=== PATIENT | female | born 1995 | race Caucasian/White ===

== ENCOUNTER → 2017-12-07 | Outpatient (CLI) | payer OTHER ==
[~2017-12-07] MED LIST: ARIP10; Bactrim 400-801 EACH PO; Bactrim Ds Tab1 EACH PO; CEPH500 PO; CIPR500 PO; CLIN300 PO; CODACEE120 PO; CRUTCH2 USE; HYDACE10B PO; HYDACE5 PO; INCARCERATION; METH10; METHYLPHENIDATE; N-ACETYL-L-CYS600 MG PO; Percocet 5-3251 EACH PO
== END | disposition home or self-care (01) ==
LOC: LAB EV 09:29 → LAB SHORT 09:29
DX: L02.91 Cutaneous abscess, unspecified (principal)
CPT/HCPCS: 87070; 87075; 87077; 87147; 87186; 87205

== ENCOUNTER 2019-02-27 19:47 | Emergency (ER) | payer OTHER ==
[~2019-02-27] VITALS: Ht 167.6 cm; Wt 72.6 kg
[2019-02-27] MEDS ORDERED: CYCL10 PO (21:22)
== END 2019-02-27 21:35 | disposition home or self-care (01) ==
LOC: ER 19:47
DX: L02.413 Cutaneous abscess of right upper limb (principal); M62.838 Other muscle spasm; F17.210 Nicotine dependence, cigarettes, uncomplicated; Z88.1 Allergy status to other antibiotic agents; V49.40XA Driver injured in collision with unspecified motor vehicles in traffic accident, initial encounter
CPT/HCPCS: 99283

== ENCOUNTER → 2019-02-28 | Outpatient (CLI) | payer OTHER ==
[~2019-02-28] MED LIST changes: +CYCL10 PO
== END | disposition home or self-care (01) ==
LOC: LAB EV 15:45 → LAB SHORT 15:45
DX: L03.011 Cellulitis of right finger (principal)
CPT/HCPCS: 87070; 87075; 87077; 87147; 87186; 87205

== ENCOUNTER 2019-03-01 14:56 | Emergency (ER) | payer OTHER ==
[~2019-03-01] VITALS: Ht 170.2 cm; Wt 72.6 kg
[2019-03-01 17:56] LABS: BASOPHILS ABSOLUTE AUTO 0.04 K/mm3 (0.00-0.23); BASOPHILS PERCENT AUTO 0 % (0-2); EOSINOPHILS ABSOLUTE AUTO 0.14 K/mm3 (0.00-0.68); EOSINOPHILS PERCENT AUTO 1 % (0-6); Hematocrit 40.5 % (33.0-51.0); Hemoglobin 13.3 g/dL (11.5-16.0); IMMATURE GRAN ABSOLUTE AUTO 0.04 K/mm3 (0.00-0.10); IMMATURE GRAN PERCENT AUTO 0 % (0-1); LYMPHOCYTES ABSOLUTE AUTO 2.29 K/mm3 (0.84-5.20); LYMPHOCYTES PERCENT AUTO 21 % (21-46); MONOCYTES ABSOLUTE AUTO 0.84 K/mm3 (0.16-1.47); MONOCYTES PERCENT AUTO 8 % (4-13); Mean Corpuscular HGB 28.6 pg (26.0-34.0); Mean Corpuscular HGB Conc 32.8 g/dL (31.5-36.5); Mean Corpuscular Volume 87 fL (80-100); Mean Platelet Volume 12.6 fL (9.1-12.4); NEUTROPHILS ABSOLUTE AUTO 7.46 K/mm3 (1.96-9.15); NEUTROPHILS PERCENT AUTO 69 % (41-73); Platelet Count 152 K/mm3 (150-400); RDW Coefficient Variation 12.8 % (11.7-14.2); RDW Standard Deviation 40.4 fL (35.1-46.3); Red Blood Cell Count 4.65 M/mm3 (3.80-5.20); White Blood Cell Count 10.81 K/mm3 (4.00-11.30)
[2019-03-01 18:17] LABS: Alanine Aminotransfer (ALT/SGP 25 U/L (12-78); Albumin, Blood 3.4 g/dL (3.4-5.0); Albumin/Globulin Ratio 0.8 (0.8-1.8); Alk Phos 71 U/L (50-136); Anion Gap 4 mmol/L (6-16); Aspartate Aminotrans (AST/SGOT 19 U/L (12-37); Bilirubin, Total 0.5 mg/dL (0.1-1.0); Blood Urea Nitrogen 12 mg/dL (8-24); Bun/Creatinine Ratio 19.4 (12.0-20.0); CO2, Blood 28 mmol/L (21-32); Calcium, Blood 9.1 mg/dL (8.5-10.1); Chloride, Blood 105 mmol/L (98-108); Creatinine, Blood 0.62 mg/dL (0.40-1.00); Globulin, Blood 4.1 g/dL (2.2-4.0); Glomerular Filtration Rate >60 (60-); Glucose, Blood 94 mg/dL (70-99); Sodium, Blood 137 mmol/L (136-145); Total Protein, Blood 7.5 g/dL (6.4-8.2)
[2019-03-01] MEDS ORDERED: Bactrim Ds Tab1 EACH PO (19:11)
== END 2019-03-01 19:24 | disposition home or self-care (01) ==
LOC: ER 14:56
PROVIDERS: Physician Assistant
DX: R42 Dizziness and giddiness (principal); R51 Headache; L02.413 Cutaneous abscess of right upper limb; B95.62 Methicillin resistant Staphylococcus aureus infection as the cause of diseases classified elsewhere; F17.210 Nicotine dependence, cigarettes, uncomplicated; Z88.1 Allergy status to other antibiotic agents; Z79.899 Other long term (current) drug therapy
CPT/HCPCS: 36415; 76882; 80053; 85025; 96372; 99283-25; J1885

== ENCOUNTER 2019-08-23 08:05 | Emergency (ER) | payer OTHER ==
[~2019-08-23] VITALS: Ht 170.2 cm; Wt 72.6 kg
[2019-08-23] MEDS ORDERED: Loperamide2 MG PO (09:04)
[2019-08-23] MEDS ORDERED: ONDA4ODT MM (09:04)
== END 2019-08-23 09:16 | disposition home or self-care (01) ==
LOC: ER 08:05
DX: A08.4 Viral intestinal infection, unspecified (principal); Z88.1 Allergy status to other antibiotic agents; Z79.899 Other long term (current) drug therapy; F17.210 Nicotine dependence, cigarettes, uncomplicated
CPT/HCPCS: 99282

== ENCOUNTER → 2020-01-08 | Outpatient (CLI) | payer OTHER ==
[~2020-01-08] MED LIST changes: +DOXYCYCLINE HY200 M1 PO; +Loperamide2 MG PO; +METH40 PO; +ONDA4ODT MM
== END | disposition home or self-care (01) ==
LOC: LAB EV 13:46 → LAB SHORT 13:46
DX: L02.414 Cutaneous abscess of left upper limb (principal)
CPT/HCPCS: 87070; 87205

== ENCOUNTER → 2020-05-04 | Outpatient (CLI) | payer OTHER | END | disposition home or self-care (01) | LOC: LAB EV 18:14 → LAB SHORT 18:14 | DX: L02.414 Cutaneous abscess of left upper limb (principal) | CPT/HCPCS: 87070; 87075; 87076; 87205 ==

== ENCOUNTER → 2022-08-10 | Outpatient (CLI) | payer OTHER ==
[2022-08-10 19:14] LABS: Albumin, Blood 3.2 g/dL (3.4-5.0); Albumin/Globulin Ratio 0.8 (0.8-1.8); Bilirubin, Total 0.1 mg/dL (0.1-1.0); Bun/Creatinine Ratio 20.3 (12.0-20.0); Calcium, Blood 8.8 mg/dL (8.5-10.1); Creatinine, Blood 0.64 mg/dL (0.40-1.00); Globulin, Blood 3.9 g/dL (2.2-4.0); Potassium, Blood 4.2 mmol/L (3.5-5.5); Total Protein, Blood 7.1 g/dL (6.4-8.2)
[2022-08-10 19:16] LABS: BASOPHILS ABSOLUTE AUTO 0.06 K/mm3 (0.00-0.23); BASOPHILS PERCENT AUTO 1 % (0-2); EOSINOPHILS PERCENT AUTO 3 % (0-6); Hematocrit 39.4 % (33.0-51.0); Hemoglobin 13.4 g/dL (11.5-16.0); IMMATURE GRAN ABSOLUTE AUTO 0.07 K/mm3 (0.00-0.10); IMMATURE GRAN PERCENT AUTO 1 % (0-1); LYMPHOCYTES ABSOLUTE AUTO 2.05 K/mm3 (0.84-5.20); LYMPHOCYTES PERCENT AUTO 26 % (21-46); MONOCYTES ABSOLUTE AUTO 0.55 K/mm3 (0.16-1.47); MONOCYTES PERCENT AUTO 7 % (4-13); Mean Corpuscular HGB 29.6 pg (26.0-34.0); Mean Corpuscular Volume 87 fL (80-100); NEUTROPHILS ABSOLUTE AUTO 4.85 K/mm3 (1.96-9.15); NEUTROPHILS PERCENT AUTO 62 % (41-73); RDW Coefficient Variation 13.5 % (11.7-14.2); RDW Standard Deviation 42.8 fL (35.1-46.3); Red Blood Cell Count 4.52 M/mm3 (3.80-5.20); White Blood Cell Count 7.78 K/mm3 (4.00-11.30)
[2022-08-10 20:00] LABS: Mean Platelet Volume 11.3 fL (9.1-12.4); Platelet Count 177 K/mm3 (150-400)
== END | disposition home or self-care (01) ==
LOC: LAB SHORT 18:59 → LAB 18:59
PROVIDERS: Physician Assistant Surgical
DX: R07.81 Pleurodynia (principal)
CPT/HCPCS: 80053; 83880; 85025

== ENCOUNTER 2022-11-10 01:14 | Emergency (ER) | payer OTHER ==
[~2022-11-10] VITALS: Ht 170.2 cm; Wt 81.7 kg
[2022-11-10 02:47] VITALS: BP 120/77
== END 2022-11-10 05:40 | disposition home or self-care (01) ==
LOC: ER 01:14
DX: J98.8 Other specified respiratory disorders (principal); B97.89 Other viral agents as the cause of diseases classified elsewhere; F17.210 Nicotine dependence, cigarettes, uncomplicated; Z88.1 Allergy status to other antibiotic agents
CPT/HCPCS: 71046; 99283-25

== ENCOUNTER 2023-03-22 08:39 | Emergency (ER) | payer OTHER ==
[~2023-03-22] VITALS: Ht 170.2 cm; Wt 81.7 kg
[2023-03-22 08:47] VITALS: BP 137/91
[2023-03-22] MEDS ORDERED: Zithromax250 MG PO (08:51)
== END 2023-03-22 09:02 | disposition home or self-care (01) ==
LOC: ER 08:39
DX: J06.9 Acute upper respiratory infection, unspecified (principal); F17.210 Nicotine dependence, cigarettes, uncomplicated; Z88.1 Allergy status to other antibiotic agents; Z20.822 Contact with and (suspected) exposure to COVID-19
CPT/HCPCS: 99282

== ENCOUNTER 2023-12-28 18:10 | Emergency (ER) | payer OTHER ==
[~2023-12-28] VITALS: Ht 167.6 cm; Wt 68.0 kg
[~2023-12-28 18:10] MED LIST changes: +Zithromax250 MG PO
[2023-12-28 19:18] LABS: BASOPHILS ABSOLUTE AUTO 0.04 K/mm3 (0.00-0.23); BASOPHILS PERCENT AUTO 0 % (0-2); EOSINOPHILS ABSOLUTE AUTO 0.36 K/mm3 (0.00-0.68); EOSINOPHILS PERCENT AUTO 4 % (0-6); Hematocrit 34.3 % (33.0-51.0); Hemoglobin 11.4 g/dL (11.5-16.0); IMMATURE GRAN ABSOLUTE AUTO 0.01 K/mm3 (0.00-0.10); IMMATURE GRAN PERCENT AUTO 0 % (0-1); LYMPHOCYTES ABSOLUTE AUTO 2.07 K/mm3 (0.84-5.20); LYMPHOCYTES PERCENT AUTO 21 % (21-46); MONOCYTES PERCENT AUTO 6 % (4-13); Mean Corpuscular HGB 29.1 pg (26.0-34.0); Mean Corpuscular HGB Conc 33.2 g/dL (31.5-36.5); Mean Corpuscular Volume 88 fL (80-100); Mean Platelet Volume 12.5 fL (9.1-12.4); NEUTROPHILS ABSOLUTE AUTO 6.62 K/mm3 (1.96-9.15); NEUTROPHILS PERCENT AUTO 68 % (41-73); Platelet Count 141 K/mm3 (150-400); RDW Coefficient Variation 13.8 % (11.7-14.2); RDW Standard Deviation 43.8 fL (35.1-46.3); Red Blood Cell Count 3.92 M/mm3 (3.80-5.20)
[2023-12-28 20:06] LABS: Albumin, Blood 3.3 g/dL (3.4-5.0); Bilirubin, Total 0.3 mg/dL (0.1-1.0); Bun/Creatinine Ratio 15.9 (12.0-20.0); Calcium, Blood 8.7 mg/dL (8.5-10.1); Creatinine, Blood 0.5 mg/dL (0.40-1.00); Globulin, Blood 3.3 g/dL (2.2-4.0); Total Protein, Blood 6.6 g/dL (6.4-8.2)
[2023-12-28] MEDS ORDERED: Ondansetron HCl 2 MG / ML 2ML Vial IV ONE (23:10)
[2023-12-29] MEDS ORDERED: ValACYClovir HCL 500 MG Tab PO ONE (00:15)
[2023-12-29] MEDS ORDERED: ONDA4ODT MM (00:19)
[2023-12-29] MEDS ORDERED: Valtrex1000 MG PO (00:19)
[2023-12-29] MEDS ORDERED: BACITRACIN ZIN1 EAC1 TOP (00:19)
[2023-12-29] MEDS ORDERED: SUBOXONE 8 MG-1 EACH SL (00:20)
[2023-12-29] MEDS ORDERED: RX Prepack 2 Sprays Naloxone HCL 4 MG/SPRAY UD ONE (00:25)
[2023-12-29 00:45] VITALS: BP 146/108
[2023-12-31 16:33] LABS: HIV 1,2 COMBO ANTIGEN/ANTIBODY Negative (Negative)
[2024-01-01 08:14] LABS: HEPATITIS B SURFACE ANTIGEN Negative (Negative)
[2024-01-01 09:21] LABS: HEPATITIS B SURFACE ANTIBODY <3.10 IU/L
[2024-01-01 10:01] LABS: HBV CORE ANTIBODIES,TOTAL Negative (Negative)
[2024-01-01 12:34] LABS: HCV QNT BY NAAT (IU/ML) Not Detected; HCV QNT BY NAAT (LOG IU/ML) Not Detected; HCV QNT BY NAAT INTERP Not Detected (Not Detected)
== END 2023-12-29 00:49 | disposition home or self-care (01) ==
LOC: ER 18:10
PROVIDERS: Emergency Medicine
DX: O26.851 Spotting complicating pregnancy, first trimester (principal); Z3A.12 12 weeks gestation of pregnancy; O99.891 Other specified diseases and conditions complicating pregnancy; O99.341 Other mental disorders complicating pregnancy, first trimester; F11.90 Opioid use, unspecified, uncomplicated; B00.1 Herpesviral vesicular dermatitis; Z88.1 Allergy status to other antibiotic agents
CPT/HCPCS: 76801; 80053; 84702; 85025; 86592; 86704; 86900; 86901; 87340; 87389; 87522; 99284-25; A9270

== ENCOUNTER 2024-02-09 08:23 | Emergency (ER) | payer OTHER ==
[~2024-02-09] VITALS: Ht 162.6 cm; Wt 63.5 kg
[~2024-02-09 08:23] MED LIST changes: +BACITRACIN ZIN1 EAC1 TOP; +SUBOXONE 8 MG-1 EACH SL; +Valtrex1000 MG PO
[2024-02-09] MEDS ORDERED: NS 1,000 ML IV SCH (09:25)
[2024-02-09] MEDS ORDERED: PyridOXINE HCL 50 MG TAB PO ONE (09:30)
[2024-02-09 10:49] LABS: Albumin, Blood 2.6 g/dL (3.4-5.0); Albumin/Globulin Ratio 0.8 (0.8-1.8); Bilirubin, Total 0.3 mg/dL (0.1-1.0); Bun/Creatinine Ratio 14.7 (12.0-20.0); Creatinine, Blood 0.54 mg/dL (0.40-1.00); Globulin, Blood 3.4 g/dL (2.2-4.0); Potassium, Blood 4.8 mmol/L (3.5-5.5)
[2024-02-09 11:05] LABS: BASOPHILS ABSOLUTE AUTO 0.04 K/mm3 (0.00-0.23); BASOPHILS PERCENT AUTO 0 % (0-2); EOSINOPHILS ABSOLUTE AUTO 0.44 K/mm3 (0.00-0.68); EOSINOPHILS PERCENT AUTO 4 % (0-6); Hematocrit 35.6 % (33.0-51.0); IMMATURE GRAN ABSOLUTE AUTO 0.04 K/mm3 (0.00-0.10); IMMATURE GRAN PERCENT AUTO 0 % (0-1); LYMPHOCYTES ABSOLUTE AUTO 1.61 K/mm3 (0.84-5.20); LYMPHOCYTES PERCENT AUTO 14 % (21-46); MONOCYTES ABSOLUTE AUTO 0.54 K/mm3 (0.16-1.47); MONOCYTES PERCENT AUTO 5 % (4-13); Mean Corpuscular HGB 30.3 pg (26.0-34.0); Mean Corpuscular HGB Conc 33.7 g/dL (31.5-36.5); Mean Corpuscular Volume 90 fL (80-100); Mean Platelet Volume 12.3 fL (9.1-12.4); NEUTROPHILS ABSOLUTE AUTO 9.09 K/mm3 (1.96-9.15); NEUTROPHILS PERCENT AUTO 77 % (41-73); Platelet Count 128 K/mm3 (150-400); RDW Coefficient Variation 13.4 % (11.7-14.2); RDW Standard Deviation 44.4 fL (35.1-46.3); Red Blood Cell Count 3.96 M/mm3 (3.80-5.20); White Blood Cell Count 11.76 K/mm3 (4.00-11.30)
[2024-02-09] MEDS ORDERED: Methadone HCL 10 MG TAB PO ONE (11:25)
[2024-02-09] MEDS ORDERED: DOXYLAMINE-PYR1 EAC1 PO (11:39)
[2024-02-09 11:53] VITALS: BP 109/71
[2024-02-09] MEDS ORDERED: PRENATE CHEWABLE1 MG PO (12:10)
== END 2024-02-09 12:31 | disposition home or self-care (01) ==
LOC: ER 08:23
DX: O21.0 Mild hyperemesis gravidarum (principal); Z3A.18 18 weeks gestation of pregnancy; Z88.0 Allergy status to penicillin; Z79.899 Other long term (current) drug therapy; F17.210 Nicotine dependence, cigarettes, uncomplicated
CPT/HCPCS: 80053; 85025; 96360; 99284-25; A9270; J7030

== ENCOUNTER 2024-07-02 12:17 | Inpatient (IN) | payer OTHER ==
[2024-07-02] VITALS (19 sets, daily range): BP systolic 96–123; BP diastolic 52–72
[~2024-07-02] VITALS: Ht 170.2 cm; Wt 86.3 kg
[~2024-07-02 12:17] MED LIST changes: +DOXYLAMINE-PYR1 EAC1 PO; +PRENATE CHEWABLE1 MG PO
[2024-07-02] MEDS ORDERED: Citric Acid/Sodium Citrate 30 ML BTL PO SCH (12:45)
[2024-07-02] MEDS ORDERED: Metoclopramide HCl 5MG / ML 2ML Vial IV SCH (12:45)
[2024-07-02] MEDS ORDERED: Lactated Ringer's 1,000 ML IV SCH ×3 (12:45→16:00)
[2024-07-02] MEDS ORDERED: Cefazolin 2000MG/Dextrose,ISO 50 ML IV PRN (12:50)
[2024-07-02] MEDS ORDERED: CeFAZolin Sodium 2,000 MG in NS 100 ML IV SCH ×3 (12:55→22:00)
[2024-07-02] MEDS ORDERED: DiphenhydrAMINE HCl 50 MG/ML 1ML Vial IV ONE (12:55)
[2024-07-02] MEDS ORDERED: METH40 PO (13:14)
[2024-07-02 14:21] LABS: BASOPHILS ABSOLUTE AUTO 0.04 K/mm3 (0.00-0.23); BASOPHILS PERCENT AUTO 0 % (0-2); EOSINOPHILS ABSOLUTE AUTO 0.13 K/mm3 (0.00-0.68); EOSINOPHILS PERCENT AUTO 1 % (0-6); Hematocrit 34.3 % (33.0-51.0); Hemoglobin 11.3 g/dL (11.5-16.0); IMMATURE GRAN ABSOLUTE AUTO 0.18 K/mm3 (0.00-0.10); IMMATURE GRAN PERCENT AUTO 2 % (0-1); LYMPHOCYTES ABSOLUTE AUTO 1.51 K/mm3 (0.84-5.20); LYMPHOCYTES PERCENT AUTO 13 % (21-46); MONOCYTES ABSOLUTE AUTO 0.55 K/mm3 (0.16-1.47); MONOCYTES PERCENT AUTO 5 % (4-13); Mean Corpuscular HGB 29.6 pg (26.0-34.0); Mean Corpuscular HGB Conc 32.9 g/dL (31.5-36.5); Mean Corpuscular Volume 90 fL (80-100); NEUTROPHILS ABSOLUTE AUTO 9.58 K/mm3 (1.96-9.15); NEUTROPHILS PERCENT AUTO 80 % (41-73); Platelet Count 149 K/mm3 (150-400); RDW Coefficient Variation 13.4 % (11.7-14.2); RDW Standard Deviation 43.8 fL (35.1-46.3); Red Blood Cell Count 3.82 M/mm3 (3.80-5.20); White Blood Cell Count 11.99 K/mm3 (4.00-11.30)
[2024-07-02 14:25] LABS: Mean Platelet Volume 13.5 fL (9.1-12.4)
[2024-07-02] MEDS ORDERED: Oxytocin 10 Unit / ML Vial ONE (14:47)
[2024-07-02] MEDS ORDERED: propofoL 20 ML IV ONE (14:48)
[2024-07-02] MEDS ORDERED: Ondansetron HCl 2 MG / ML 2ML Vial ONE (15:09)
[2024-07-02] MEDS ORDERED: Ketorolac Tromethamine 30mg Vial ONE (15:10)
[2024-07-02 15:13] LABS: PCO2 Cord - Arterial 76.2 mmHg (40-50); PO2 Cord - Arterial < 14.0 mmHg (16-20); pH Cord - Arterial 7.18 (7.28-7.35)
[2024-07-02 15:15] LABS: PCO2 Cord - Venous 61.8 mmHg (40-50); PO2 Cord - Venous 16.5 mmHg (28-32); pH Umbilical Cord - Venous 7.25 (7.26-7.35)
--- NOTE | 2024-07-02 15:35 | NUR ---
07/02/24 1535 Andrew Aldana VIABLE FEMALE BORN @ 1456. APGARS 8/9. CORE BLOOD SENT WITH CONCEPCION BLUE, URINE TOX SENT WITH CONCEPCION BLUE. BLOOD GASES SENT WITH ANTONIETA BULLOCK.
[2024-07-02] MEDS ORDERED: HYDROmorphone HCl/Pf 1MG SYR IV PRN (15:55)
[2024-07-02] MEDS ORDERED: OXYTOCIN/RINGER'S LACTATE 500 ML IV SCH (15:55)
[2024-07-02] MEDS ORDERED: OxyCODONE 5 mg/Acetamin 325 mg TABLET PO PRN ×2 (15:55→18:00)
[2024-07-02] MEDS ORDERED: Methylergonovine Maleate 0.2MG / ML 1ML Amp IM PRN (16:00)
[2024-07-02] MEDS ORDERED: Ketorolac Tromethamine 30mg Vial IV SCH (16:00)
[2024-07-02] MEDS ORDERED: Promethazine HCl 12.5 MG Supp PR PRN (16:00)
[2024-07-02] MEDS ORDERED: Promethazine HCl 25 MG Tab PO PRN (16:00)
[2024-07-02] MEDS ORDERED: Magnesium Hydroxide Conc 10 ML UDC PO PRN (16:00)
[2024-07-02] MEDS ORDERED: Ibuprofen 400 MG Tab PO SCH (16:00)
[2024-07-02] MEDS ORDERED: Promethazine HCl 25 MG Supp PR PRN (16:00)
[2024-07-02] MEDS ORDERED: Acetaminophen 500 MG Tab PO PRN (16:05)
[2024-07-02] MEDS ORDERED: Rho(D) Immune Globulin 300 MCG / SYR IM ONE (16:05)
[2024-07-02] MEDS ORDERED: Lanolin Cream TOP PRN (16:05)
[2024-07-02] MEDS ORDERED: Ondansetron HCl 2 MG / ML 2ML Vial IV PRN (16:05)
[2024-07-02] MEDS ORDERED: Simethicone 80 MG Chew PO PRN (16:05)
[2024-07-02] MEDS ORDERED: OxyCODONE 10/Acetamin 325 TABLET PO PRN (16:05)
[2024-07-02 16:07] LABS: U Amphetamine Screen Not Detected; U Barbituate Screen Not Detected; U Benzodiazapine Screen Not Detected; U Buprenorphine Screen Not Detected; U Cannabinoids Screen DETECTED; U Cocaine Screen Not Detected; U Methadone Screen DETECTED; U Methamphetamine Screen Not Detected; U Opiates Screen Not Detected; U Oxycodone Screen Not Detected; U Phencyclidine Screen Not Detected
[2024-07-02] MEDS ORDERED: Misoprostol 200 MCG Tab BC ONE (16:10)
[2024-07-02] MEDS ORDERED: Tranexamic Acid 100 ML IV PRN (16:15)
[2024-07-02] MEDS ORDERED: Docusate Sodium 100 MG Cap PO SCH (21:00)
[2024-07-03 02:31] VITALS: BP 124/62
--- NOTE | 2024-07-03 03:39 | NUR ---
AFTER PT GOT DONE WITH HER SHOWER PT REQUESTED TO GO OUTSIDE OF [facility] AND USE [facility]. RN EDUCATED PT THAT EITHER HER MOTHER IN ROOM MUST WATCH OR WE WATCH WHILE GONE. GRANDMOTHER OF AGREED TO STAY AWAKE AND WATCH BABY. RN PLACED TAMPER TAPE OVER IV HUB AND AROUND OTHER SITE OF IV. RN ALSO PLACED AN ELASTIC NET RETAINER DRESSING OVER IV. 0255- PT WALKS OUT OF FACILITY. 0325- PT WALKS BACK INTO [facility]. RN CHECKS PT IV AND THE TAMPER TAPE WAS SECURED THE SAME WAY IT WAS PLACED AND WAS INTACT.
[2024-07-03 06:10] VITALS: BP 109/54
[2024-07-03] MEDS ORDERED: Methadone HCL 10 MG TAB PO SCH (09:00)
[2024-07-03] MEDS ORDERED: Prenatal Vit/FE Fumarate/FA 1 Tab PO SCH (09:00)
[2024-07-03 09:07] VITALS: BP 116/57
[2024-07-03 11:38] VITALS: BP 117/79
[2024-07-03] MEDS ORDERED: Ibuprofen 400 MG Tab PO SCH (12:00)
[2024-07-03 19:31] VITALS: BP 123/80
[2024-07-03] MEDS ORDERED: Magnesium Hydroxide Conc 10 ML UDC PO SCH (21:00)
--- NOTE | 2024-07-03 21:06 | NUR ---
2100: THIS RN ATTEMPTED TO GIVE PATIENT SCHEDULED MEDICATIONS BUT PATIENT WAS NOT IN ROOM. SUPPORT PERSON IN ROOM WITH BABY.
[2024-07-03] MEDS ORDERED: Nicotine 14 MG PATCH TOP SCH (22:00)
--- NOTE | 2024-07-04 04:38 | NUR ---
PT NOT IN ROOM OR ON UNIT FOR MIDNIGHT VITALS
[2024-07-04 05:23] VITALS: BP 121/84
[2024-07-04 10:36] VITALS: BP 125/88
[2024-07-04 13:45] VITALS: BP 108/68
--- NOTE | 2024-07-04 14:02 | NUR ---
DISCHARGE TEACHING DONE. VERBALIZES UNDERSTANDING. PT DENIES QUESTIONS, ENCOURAGED TO ASK IF SHE HAS ANY. WORKING ON DISCHARGE PAPERWORK TO BECOME A BOARDING MOM.
[2024-07-04] MEDS ORDERED: IBUP800 PO (14:20)
[2024-07-04] MEDS ORDERED: ACET500 PO (14:20)
[2024-07-04] MEDS ORDERED: DOCU100 PO (14:21)
[2024-07-04] MEDS ORDERED: OXAYDO5 M2 PO (14:21)
[2024-07-04] MEDS ORDERED: Nicoderm Cq1 EAC1 TOP (14:23)
--- NOTE | 2024-07-04 14:47 | NUR ---
PT DISCHARGED @1445 BOARDER MOM. EXPLAINED BOARDER MOM STATUS TO PT, VERBALIZED UNDERSTANDING, ENCOURAGED TO ASK QUESTIONS IF SHE HAS ANY.
[2024-07-04 16:59] LABS: HCV QNT BY NAAT (IU/ML) Not Detected; HCV QNT BY NAAT (LOG IU/ML) Not Detected; HCV QNT BY NAAT INTERP Not Detected (Not Detected)
== END 2024-07-04 14:45 | disposition home or self-care (01) | DRG 787 ==
LOC: BC 12:17
PROVIDERS: ADMIT Obstetrics & Gynecology
PROC: 10D00Z1 Extraction of Products of Conception, Low, Open Approach (ICD-10-PCS; principal; 2024-07-02 14:30)
DX: O99.824 Streptococcus B carrier state complicating childbirth (principal); F11.20 Opioid dependence, uncomplicated; Z62.810 Personal history of physical and sexual abuse in childhood; Z3A.39 39 weeks gestation of pregnancy; Z37.0 Single live birth; O99.324 Drug use complicating childbirth; Z88.0 Allergy status to penicillin
CPT/HCPCS: 36415; 82803; 85025; 87522; A9270; J0690; J1885; J2405; J2590; J2704; J2765; J7120

== ENCOUNTER 2025-03-23 11:57 | Emergency (ER) | payer OTHER ==
[~2025-03-23] VITALS: Ht 172.7 cm; Wt 81.7 kg
[~2025-03-23 11:57] MED LIST changes: +ACET500 PO; +DOCU100 PO; +IBUP800 PO; +Nicoderm Cq1 EAC1 TOP; +OXAYDO5 M2 PO
[2025-03-23 12:27] VITALS: BP 167/100
== END 2025-03-23 13:16 | disposition home or self-care (01) ==
LOC: ER 11:57
DX: Z76.89 Persons encountering health services in other specified circumstances (principal); F11.20 Opioid dependence, uncomplicated; F17.210 Nicotine dependence, cigarettes, uncomplicated; Z79.899 Other long term (current) drug therapy
CPT/HCPCS: 99281; A9270

== ENCOUNTER 2025-03-24 11:43 | Emergency (ER) | payer OTHER ==
[~2025-03-24] VITALS: Ht 172.7 cm; Wt 81.7 kg
[2025-03-24 12:16] VITALS: BP 133/96
== END 2025-03-24 12:53 | disposition home or self-care (01) ==
LOC: ER 11:43
DX: Z11.59 Encounter for screening for other viral diseases (principal); F11.20 Opioid dependence, uncomplicated; F17.210 Nicotine dependence, cigarettes, uncomplicated; Z76.89 Persons encountering health services in other specified circumstances; Z79.899 Other long term (current) drug therapy; Z88.0 Allergy status to penicillin; Z88.1 Allergy status to other antibiotic agents
CPT/HCPCS: 36415; 80053; 86480; 99281; A9270